=== PATIENT | male | born 1950 | race Caucasian/White ===

== ENCOUNTER → 2019-02-06 | Outpatient (CLI) | payer OTHER ==
[~2019-02-06] MED LIST: ALBU90OI61 INH; AMAN100 PO; DULERA 100 MCG/13 GM; FLUSAL5005 INH; ONDA8ODT MM; RASA1 PO; RXONDA4ODT MM; TIOT18
== END | disposition home or self-care (01) ==
LOC: LAB SHORT 08:06 → PLD 08:06
DX: L98.9 Disorder of the skin and subcutaneous tissue, unspecified (principal); L30.8 Other specified dermatitis
CPT/HCPCS: 88305; 88312

== ENCOUNTER 2022-11-09 08:04 | Inpatient (IN) | payer OTHER, MEDICARE ==
[~2022-11-09] VITALS: Ht 170.2 cm; Wt 59.0 kg
[2022-11-09] VITALS (18 sets, daily range): BP systolic 128–190; BP diastolic 80–110
[2022-11-09 08:37] LABS: Source, Urine Clean Catch
[2022-11-09 09:04] LABS: Appearance, Urine Clear (Clear); Bilirubin, Urine Neg (Neg); Blood, Urine Neg (Neg); Color, Urine Yellow (P-Yellow); Glucose Qualitative, Urine Neg (Neg); Ketones, Urine 3+ (Neg); Leukocyte Esterase, Urine Neg (Neg); Nitrite, Urine Neg (Neg); Protein, Urine 2+ (Neg); Urobilinogen, Urine NORM (Normal)
[2022-11-09 09:07] LABS: BASOPHILS ABSOLUTE AUTO 0.08 K/mm3 (0.00-0.23); BASOPHILS PERCENT AUTO 1 % (0-2); EOSINOPHILS ABSOLUTE AUTO 0.17 K/mm3 (0.00-0.68); EOSINOPHILS PERCENT AUTO 3 % (0-6); Hematocrit 41.7 % (37.0-53.0); Hemoglobin 14.3 g/dL (13.5-17.5); IMMATURE GRAN ABSOLUTE AUTO 0.02 K/mm3 (0.00-0.10); IMMATURE GRAN PERCENT AUTO 0 % (0-1); LYMPHOCYTES ABSOLUTE AUTO 1.11 K/mm3 (0.84-5.20); LYMPHOCYTES PERCENT AUTO 16 % (21-46); MONOCYTES ABSOLUTE AUTO 0.56 K/mm3 (0.16-1.47); MONOCYTES PERCENT AUTO 8 % (4-13); Mean Corpuscular HGB Conc 34.3 g/dL (31.5-36.5); Mean Corpuscular Volume 91 fL (80-100); Mean Platelet Volume 10.2 fL (9.1-12.4); NEUTROPHILS ABSOLUTE AUTO 4.87 K/mm3 (1.96-9.15); NEUTROPHILS PERCENT AUTO 72 % (41-73); Platelet Count 216 K/mm3 (150-400); RDW Coefficient Variation 13.6 % (11.7-14.2); RDW Standard Deviation 45.7 fL (35.1-46.3); Red Blood Cell Count 4.61 M/mm3 (4.30-5.90); White Blood Cell Count 6.81 K/mm3 (4.00-11.30)
[2022-11-09 09:15] LABS: Bacteria Not Seen /hpf; Mucus Light (0-Heavy); Red Blood Cells, Urine Not Seen /hpf (0-2); Squamous Epithelial Cells Rare /hpf (Few); White Blood Cells, Urine 0-2 /hpf (0-5)
[2022-11-09 09:24] LABS: Albumin, Blood 4.2 g/dL (3.4-5.0); Bilirubin, Direct 0.2 mg/dL (0.0-0.3); Bilirubin, Indirect 0.4 mg/dL (0.1-0.7); Bilirubin, Total 0.6 mg/dL (0.1-1.0); Calcium, Blood 9.8 mg/dL (8.5-10.1); Creatinine, Blood 1.04 mg/dL (0.60-1.20); Globulin, Blood 4.1 g/dL (2.2-4.0); Magnesium, Blood 2.4 mg/dL (1.6-2.4); Potassium, Blood 4.3 mmol/L (3.5-5.5); Total Protein, Blood 8.3 g/dL (6.4-8.2)
--- NOTE | 2022-11-09 14:30 | NUR ---
ARRIVAL ARRIVED TO UNIT, TRANSFERRED TO BED INDEPENDENTLY. PATEINT REPORTS MINIMAL PAIN AT THIS TIME, DENIES NAUSEA. ORIENTED TO ROOM & CALL LIGHT.
--- NOTE | 2022-11-09 15:13 | NUR ---
PATIENT TO DAY SURGERY WITH ÁNGEL PALM
--- NOTE | 2022-11-09 15:21 | NUR ---
THE PATIENT WAS BROUGHT TO DAY SURGERY FOR HIS PROCEDURE.
[2022-11-10 00:02] VITALS: BP 143/92
[2022-11-10 03:54] VITALS: BP 137/97
--- NOTE | 2022-11-10 03:59 | NUR ---
SUMMARY PATIENT IS AOX4, S/P EX LAP FOR INGUINAL HERNIA. GAUZE AND TEGADERM TO RLQ C/D/I. PATIENT HAS MILD DISTENTION AND TENDERNESS. REPORTS SMALL BOUTS OF NAUSEA NO VOMITTING. ABLE TO TOLERATE SMALL SIPS OF WATER T/O SHIFT. VOIDS IN URINAL WITH 1 ASSIST. IV FLUIDS INFUSING. MEDICATED FOR PAIN PER ORDERS. VSS, CALL LIGHT IN REACH. WILL REPORT TO DAY RN.
[2022-11-10 07:06] VITALS: BP 138/81
[2022-11-10 14:45] VITALS: BP 219/190
[2022-11-10 14:52] VITALS: BP 130/82
--- NOTE | 2022-11-10 18:39 | NUR ---
SUMMARY: PT IS POD1 HERNIA REPAIR. A/O, VSS. PT DOING WELL, FOZIA PO INTAKE, ADVANCING DIET TO FULL LIQ TONIGHT. PT HAS DENIED N/V, REPORTS PASSING FLATUS. PT INDEPENDENT TO BATHROOM. HAS REPORTED MINIMAL PAIN, MEDICATED PER EMAR. PT BP HAD VERY HYPERTENSIVE READING TONIGHT WITH THE VS MACHINE AND THIS RN MADE AWARE. BUT UPON ASSESSMENT PT ASYMPTOMATIC AND MANUAL BP TAKEN WNL. SEE CHARTING. PT HAS BASELINE TREMORS WITH PARKINSONS THAT MAKES IT DIFFICULT FOR THE VITAL SIGN MACHINE TO READ. NO ACUTE SAFETY CONCERNS, PT USING CALL LIGHT. SURGICAL SITE WNL. PLAN IS FOR DC TOMORROW.
[2022-11-10 19:23] VITALS: BP 158/66
[2022-11-11 03:57] VITALS: BP 147/70
[2022-11-11 07:17] VITALS: BP 131/80
--- NOTE | 2022-11-11 08:41 | NUR ---
SUMMARY TOLERATING PO.PAIN CONTROLLED. VOIDING WITHOUT DIFF. HOPING FOR DISCHARGE.
[2022-11-11 14:06] VITALS: BP 139/80
[2022-11-11 19:20] VITALS: BP 128/88
--- NOTE | 2022-11-11 19:24 | NUR ---
SHIFT SUMMARY PT A&OX4, VSS/RA, FOZIA PO, VOIDING WELL, BMsX2/PASSING FLATUS, AMB INDEPENDENTLY IN HALLWAY, SHOWERED TODAY, PAIN MANAGED. REPORT TO JAYJAY NEAL.
[2022-11-12 06:04] VITALS: BP 113/77
[2022-11-12 07:07] VITALS: BP 125/79
--- NOTE | 2022-11-12 07:59 | NUR ---
INDERJIT SALDANA PLANS FOR DISCHARGE TODAY.
--- NOTE | 2022-11-12 12:22 | NUR ---
DISCHARGE SUMMARY PT A&OX4, VSS/RA, FOZIA PO, VOIDING/BMS, AMB INDEPENDENTLY, PAIN MANAGED/DENIES NEED FOR PAIN MEDICATION, CHANGED GAUZE/TEGADERM DRESSING - STERI STRIP CDI UNDERNEATH, IV DC'D. DC INS PROVIDED. PT REP UNDERSTANDING THOSE INSTRUCTIONS INCLUDING FU WITH SURGEON 2 WKS, REMOVE TOP DRESSING 48 HOURS/LEAVE STERIS IN PLACE, OK TO SHOWER/NO TUBS. LEFT FLOOR WITH ALL PERSONAL POSSESSIONS INCLUDING DC PACKET, DECLINING WC.
== END 2022-11-12 11:54 | disposition home or self-care (01) | DRG 329 ==
LOC: ER 08:04 → SURS 11:47 → ER 11:47 → SURS 14:41
PROVIDERS: Student in an Organized Health Care Education/Training Program; ADMIT Surgery
PROC: 0DB80ZZ Excision of Small Intestine, Open Approach (ICD-10-PCS; principal; 2022-11-09 14:00)
PROC: 0YU70JZ Supplement Right Femoral Region with Synthetic Substitute, Open Approach (ICD-10-PCS; 2022-11-09 14:00)
DX: K40.30 Unilateral inguinal hernia, with obstruction, without gangrene, not specified as recurrent (principal); K55.019 Acute (reversible) ischemia of small intestine, extent unspecified; K41.30 Unilateral femoral hernia, with obstruction, without gangrene, not specified as recurrent; G20 Parkinson's disease; J45.909 Unspecified asthma, uncomplicated; Z87.891 Personal history of nicotine dependence; Z98.890 Other specified postprocedural states; Z79.899 Other long term (current) drug therapy
CPT/HCPCS: 36415; 74177; 80048; 80076; 81001; 83605; 83690; 83735; 85025; 88307; 96374-59; 96375; 96376; 99285-25; A9270; C9113; J0690; J1170; J1885; J2405; J2704; J3010; J7120; Q9967

== ENCOUNTER 2023-07-02 15:11 | Emergency (ER) | payer OTHER ==
[~2023-07-02] VITALS: Ht 170.2 cm; Wt 63.5 kg
[2023-07-02] MEDS ORDERED: Prednisone20 MG PO (17:04)
[2023-07-02] MEDS ORDERED: CYCL10 PO (17:04)
[2023-07-02 17:11] VITALS: BP 149/92
== END 2023-07-02 17:14 | disposition home or self-care (01) ==
LOC: ER 15:11
DX: M51.36 Other intervertebral disc degeneration, lumbar region (principal); G89.29 Other chronic pain; G20.A1 Parkinson's disease without dyskinesia, without mention of fluctuations; Z79.899 Other long term (current) drug therapy
CPT/HCPCS: 99282

== ENCOUNTER 2025-07-12 03:24 | Inpatient (IN) | payer OTHER ==
[~2025-07-12] VITALS: Ht 177.8 cm; Wt 58.2 kg
[~2025-07-12 03:24] MED LIST changes: +CYCL10 PO; +Prednisone20 MG PO
[2025-07-12] MEDS ORDERED: Lidocaine 2% Viscous Soln 15 ML UDC PO ONE (03:50)
[2025-07-12 04:02] LABS: BASOPHILS ABSOLUTE AUTO 0.06 K/mm3 (0.00-0.23); BASOPHILS PERCENT AUTO 1 % (0-2); EOSINOPHILS ABSOLUTE AUTO 0.44 K/mm3 (0.00-0.68); EOSINOPHILS PERCENT AUTO 7 % (0-6); Hematocrit 37.8 % (37.0-53.0); Hemoglobin 12.6 g/dL (13.5-17.5); IMMATURE GRAN ABSOLUTE AUTO 0.01 K/mm3 (0.00-0.10); IMMATURE GRAN PERCENT AUTO 0 % (0-1); LYMPHOCYTES ABSOLUTE AUTO 1.77 K/mm3 (0.84-5.20); LYMPHOCYTES PERCENT AUTO 29 % (21-46); MONOCYTES ABSOLUTE AUTO 0.46 K/mm3 (0.16-1.47); MONOCYTES PERCENT AUTO 8 % (4-13); Mean Corpuscular HGB Conc 33.3 g/dL (31.5-36.5); Mean Corpuscular Volume 94 fL (80-100); NEUTROPHILS ABSOLUTE AUTO 3.43 K/mm3 (1.96-9.15); NEUTROPHILS PERCENT AUTO 56 % (41-73); NRBC ABSOLUTE 0.00 K/mm3 (0.00-0.02); NRBC Auto 0.0 /100 WBC (0.0-0.2); Platelet Count 194 K/mm3 (150-400); RDW Coefficient Variation 13.2 % (11.7-14.2); RDW Standard Deviation 46.0 fL (35.1-46.3)
[2025-07-12] MEDS ORDERED: Morphine Sulfate 4 MG/1 ML Injection IV ONE ×2 (04:05→05:15)
[2025-07-12] MEDS ORDERED: Ondansetron HCl 2 MG / ML 2ML Vial IV ONE ×2 (04:05→16:00)
[2025-07-12 04:27] LABS: Alanine Aminotransfer (ALT/SGP 30.0 U/L (12-78); Albumin, Blood 3.7 g/dL (3.4-5.0); Albumin/Globulin Ratio 1.0 (0.8-1.8); Anion Gap 7.0 mmol/L (3-11); Aspartate Aminotrans (AST/SGOT 18.0 U/L (12-37); Bilirubin, Total 0.3 mg/dL (0.1-1.0); Blood Urea Nitrogen 22.0 mg/dL (8-24); CO2, Blood 27.0 mmol/L (21-32); Calcium, Blood 8.8 mg/dL (8.5-10.1); Chloride, Blood 107.0 mmol/L (98-108); Creatinine, Blood 0.93 mg/dL (0.60-1.20); Globulin, Blood 3.8 g/dL (2.2-4.0); Glucose, Blood 138.0 mg/dL (70-99); Magnesium, Blood 2.3 mg/dL (1.6-2.4); Potassium, Blood 3.8 mmol/L (3.5-5.5); Sodium, Blood 137.0 mmol/L (136-145); Total Protein, Blood 7.5 g/dL (6.4-8.2)
[2025-07-12] MEDS ORDERED: Ondansetron HCl 2 MG / ML 2ML Vial IV PRN ×2 (07:35→16:00)
[2025-07-12] MEDS ORDERED: KLONOPIN0.5 M9 PO (07:35)
[2025-07-12] MEDS ORDERED: NS 1,000 ML IV SCH (07:35)
[2025-07-12] MEDS ORDERED: FentaNYL Citrate 50 MCG/ML 2 ML Injection IV PRN (07:35)
[2025-07-12] MEDS ORDERED: FLU VACC TS2025(65UP)/MF59C/PF 45 MCG/0.5 ML SYRINGE IM SCH (07:40)
[2025-07-12 09:08] VITALS: BP 148/91
[2025-07-12] MEDS ORDERED: MIRT30ST PO (10:09)
[2025-07-12] MEDS ORDERED: GABA300 PO (10:10)
[2025-07-12] MEDS ORDERED: HYDROmorphone HCl/Pf 1MG SYR IV PRN (14:25)
[2025-07-12 14:57] VITALS: BP 150/89
--- NOTE | 2025-07-12 15:17 | NUR ---
ADMIT NOTE PT CAME TO FLOOR AT 0900. PT HAS HX OF PARKINSONS AND HAS TREMORS. PT TRANSFERED SELF TO BED WITH ONE PERSON ASSIST. PT ORIENTED TO CALL LIGHT/FALL PRECAUTIONS/UNIT. PT A&OX4. PT GOT REPORT FROM ER. PT ADMITTED DUE TO SBO. PT IS NPO, ON BOWEL REST. SCD'S ON. MED REC COMPLETED. ADMIT ASSESSMENT COMPLETE. PT PT IS A 1 ASSIST TO TOILET. PT REPORTS USING CANE/WALKER AT HOME. PT REPORTS HAVING GAS. NS RUNNING AT 100ML/HR. PT REPORTS ABD PAIN ON ADMIT. PT MEDICATED W FENT. AT 1057. PT REPORTED NAUSEA THIS AM, ZOFRAN IV ADMINISTERED. PT REPORTED FOFANA AND ABD PAIN THIS AFTERNOON, FENT. ORDERED Q4. FENT. WASN'T DUE QUITE YET. THIS RN NOTIFIED DR. DURBIN ABOUT 10/[address] DURBIN D/C FENT. AND ORDERED DILAUDID. THIS RN ADMINISTERED 0.5 MG OF DILAUDID, PT REPORTED 4/10 PAIN POST ADMINISTRATION. PT IN BED, BED IN LOWEST POSITION, BED LOCKED, CALL LIGHT IN REACH.
--- NOTE | 2025-07-12 16:45 | NUR ---
NOTE PT REPORTS NAUSEA, PT SPIT UP ON HIMSELF. EMESIS BAG AT BEDSIDE. DR. DURBIN ORDERED ONE TIME DOSE. THIS RN ADMINISTERED.
--- NOTE | 2025-07-12 18:30 | NUR ---
SHIFT SUMMARY (REFER BACK TO ADMIT NOTE ABOUT PAIN MANAGEMENT AND NAUSEA CONTROL.) PT A&OX4. PT ADMITED DUE TO SBO. PT REPORTS PAIN, PAIN MANAGED PER EMAR. PT REPORTS NAUSEA, NAUSEA MEDICATED PER EMAR. PT HAS COOL WASH CLOTH ON FOREHEAD FOR COMFORT AND FAN ON AT BEDSIDE. PT IS 1P ASSIST TO TOILET. THIS AFTERNOON DR. DEY NOTIFIED ABOUT INDICATION FOR NG TUBE. THIS RN EDUCATED PT ABOUT NG TUBE WHILE SON AT BEDSIDE. PT REPORTED "UNWILLINGNESS FOR TUBE." REPORTED "FEELING NERVOUS." PT REPORTED "NOT NAUSEA AND NO PAIN." THIS RN NOTICED TEARS IN PT EYES WHILE VERBALIZING IMPROVEMENT. THIS RN EDUCATED PT ON BENEFIT OF NG TUBE, PT DECLINED. THIS RN NOTIFIED DR. DEY BY CELL. PT REMAINS NPO. PT IN BED, BED IN LOWEST POSITION, LOCKED, EMESIS BAG NEAR BY, BED LOCKED, CALL LIGHT IN REACH.
[2025-07-12 20:14] VITALS: BP 147/91
[2025-07-13 04:26] VITALS: BP 132/79
--- NOTE | 2025-07-13 05:11 | NUR ---
SHIFT SUMMARY NOC PT A/O X 4. PLEASANT AND COOPERATIVE WITH CARE. BUT STILL REFUSING NGT PLACEMENT, HOSPITALIST NOTIFIED OF REFUSAL AND THAT DR DEY IS AWARE OF PREVIOUS REFUSAL. PT HAD MINIMAL NAUSA WITH LESS THAN 100ML EMESIS NOTED, AND ZOFRAN GIVEN X 2. PT HAD NO C/O OF ABD PAIN, BUT C/O OF FOFANA AND GIVEN TOTAL OF 1.5 MG IV DILAUDED WITH GOOD EFFECT. PT HAS IVF INFUSING PER EMAR. PT STATED THAT THEY HOPE TO ADVANCE TO CLEAR LIQUID DIET TODAY. PT ASLO ON PULSE OXIMETY FOR IV NARCOTICS AND FOR POSSIBLE ASPIRATION DUE TO NO NGT PLACMENT. Q6H BLOOD GLUCOSE CHECKS HAVE BEEN INITIATED. PT CURRENTLY RESTING WITH BED ALARM ON, BED IN LOWEST POSITION, AND CALL LIGHT WITHIN REACH.
[2025-07-13 05:34] LABS: BASOPHILS ABSOLUTE AUTO 0.05 K/mm3 (0.00-0.23); BASOPHILS PERCENT AUTO 1 % (0-2); EOSINOPHILS ABSOLUTE AUTO 0.04 K/mm3 (0.00-0.68); EOSINOPHILS PERCENT AUTO 1 % (0-6); Hematocrit 34.9 % (37.0-53.0); Hemoglobin 11.5 g/dL (13.5-17.5); IMMATURE GRAN ABSOLUTE AUTO 0.02 K/mm3 (0.00-0.10); IMMATURE GRAN PERCENT AUTO 0 % (0-1); LYMPHOCYTES ABSOLUTE AUTO 1.29 K/mm3 (0.84-5.20); LYMPHOCYTES PERCENT AUTO 18 % (21-46); MONOCYTES ABSOLUTE AUTO 0.49 K/mm3 (0.16-1.47); MONOCYTES PERCENT AUTO 7 % (4-13); Mean Corpuscular HGB Conc 33.0 g/dL (31.5-36.5); Mean Corpuscular Volume 94 fL (80-100); NEUTROPHILS ABSOLUTE AUTO 5.22 K/mm3 (1.96-9.15); NEUTROPHILS PERCENT AUTO 73 % (41-73); NRBC ABSOLUTE 0.00 K/mm3 (0.00-0.02); NRBC Auto 0.0 /100 WBC (0.0-0.2); Platelet Count 188 K/mm3 (150-400); RDW Coefficient Variation 13.2 % (11.7-14.2); RDW Standard Deviation 45.9 fL (35.1-46.3)
[2025-07-13 05:54] LABS: Anion Gap 9.0 mmol/L (3-11); Blood Urea Nitrogen 16.0 mg/dL (8-24); CO2, Blood 25.0 mmol/L (21-32); Calcium, Blood 8.4 mg/dL (8.5-10.1); Chloride, Blood 107.0 mmol/L (98-108); Creatinine, Blood 0.85 mg/dL (0.60-1.20); Glucose, Blood 106.0 mg/dL (70-99); Potassium, Blood 3.9 mmol/L (3.5-5.5); Sodium, Blood 137.0 mmol/L (136-145)
[2025-07-13] MEDS ORDERED: Pantoprazole Sodium 40 MG Injection IV SCH (06:00)
[2025-07-13 07:24] VITALS: BP 167/98
[2025-07-13] MEDS ORDERED: Ketorolac Tromethamine 15mg Vial IV PRN (07:45)
[2025-07-13 16:46] VITALS: BP 152/93
--- NOTE | 2025-07-13 17:51 | NUR ---
SUMMARY- AAOX3-4. ON RA. THIS RN PLACED NG TUBE AT 1000 THIS MORNING AND PT HAS HAD VERY MINIMAL OUTPUT (100ML OF PINK-CLEAR FLUID). PT'S PAIN IS IMPROVED SINCE PLACEMENT. PAIN WELL CONTROLLED WITH EMAR PAIN MEDS. X1 ASSIST. NO ACUTE EVENTS THIS SHIFT. FOFANA PAIN MUCH IMPROVED AFTER KETOROLAC ADMINISTRATION.
[2025-07-13 20:42] VITALS: BP 142/84
[2025-07-14 04:27] VITALS: BP 153/85
[2025-07-14 04:43] LABS: BASOPHILS ABSOLUTE AUTO 0.06 K/mm3 (0.00-0.23); BASOPHILS PERCENT AUTO 1 % (0-2); EOSINOPHILS ABSOLUTE AUTO 0.43 K/mm3 (0.00-0.68); EOSINOPHILS PERCENT AUTO 6 % (0-6); Hematocrit 35.1 % (37.0-53.0); Hemoglobin 11.5 g/dL (13.5-17.5); IMMATURE GRAN ABSOLUTE AUTO 0.02 K/mm3 (0.00-0.10); IMMATURE GRAN PERCENT AUTO 0 % (0-1); LYMPHOCYTES ABSOLUTE AUTO 1.83 K/mm3 (0.84-5.20); LYMPHOCYTES PERCENT AUTO 25 % (21-46); MONOCYTES ABSOLUTE AUTO 0.50 K/mm3 (0.16-1.47); MONOCYTES PERCENT AUTO 7 % (4-13); Mean Corpuscular HGB Conc 32.8 g/dL (31.5-36.5); Mean Corpuscular Volume 95 fL (80-100); NEUTROPHILS ABSOLUTE AUTO 4.52 K/mm3 (1.96-9.15); NEUTROPHILS PERCENT AUTO 61 % (41-73); NRBC ABSOLUTE 0.00 K/mm3 (0.00-0.02); NRBC Auto 0.0 /100 WBC (0.0-0.2); Platelet Count 174 K/mm3 (150-400); RDW Coefficient Variation 13.4 % (11.7-14.2); RDW Standard Deviation 46.2 fL (35.1-46.3)
--- NOTE | 2025-07-14 05:31 | NUR ---
PT SLEPT T/O THIS SHIFT. PT HAS BOUTS OF FORGETFULNESS. PT PULLED NG TUBE DURING USING URINAL IT WAS REPLACED AND IT ON LOW INTERMITTENT SUCTION.
[2025-07-14 06:37] LABS: Alanine Aminotransfer (ALT/SGP 22.0 U/L (12-78); Albumin, Blood 3.5 g/dL (3.4-5.0); Albumin/Globulin Ratio 1.1 (0.8-1.8); Anion Gap 8.0 mmol/L (3-11); Aspartate Aminotrans (AST/SGOT 13.0 U/L (12-37); Bilirubin, Total 0.6 mg/dL (0.1-1.0); Blood Urea Nitrogen 14.0 mg/dL (8-24); CO2, Blood 25.0 mmol/L (21-32); Calcium, Blood 8.4 mg/dL (8.5-10.1); Chloride, Blood 109.0 mmol/L (98-108); Creatinine, Blood 0.9 mg/dL (0.60-1.20); Globulin, Blood 3.2 g/dL (2.2-4.0); Glucose, Blood 78.0 mg/dL (70-99); Potassium, Blood 3.5 mmol/L (3.5-5.5); Sodium, Blood 138.0 mmol/L (136-145); Total Protein, Blood 6.7 g/dL (6.4-8.2)
[2025-07-14 07:29] VITALS: BP 168/92
--- NOTE | 2025-07-14 12:24 | NUR ---
NOTIFIED DR GARCIA OF BLOOD GLUCOSE 67. ORDER TO DC NS AT 100 AND CHANGE TO D5 1/2 NS AT 100.
[2025-07-14] MEDS ORDERED: D5W-1/2NS 1,000 ML IV SCH (12:40)
--- NOTE | 2025-07-14 15:01 | NUR ---
NG TUBE DC'D PER DR. DEY, IF THE PT DID NOT FEAL NAUSEATED OR BLOATED AND WAS PASSING STOOL.IT IS OK TO REMOVE THE NG TUBE. PT REPORTED NO NAUSEA OR BLOATING AND REPORTED PASSING STOOL. THEREFORE THE NG TUBE HAS BEEN REMOVED,PT TOLERATED WELL
[2025-07-14 15:50] VITALS: BP 136/86
--- NOTE | 2025-07-14 16:08 | NUR ---
PT ALERT AND ORIENTED X3, STANDBY ASSISTANCE TO BEDSIDE COMMODE DUE TO IV POLE AND NG TUBE. C/O HEADACHE ONCE THIS SHIFT PRN TORADOL GIVEN AND RELIEVED SYMPTOMS. SMALL BOWEL FOLLOW THROUGH COMPLETED THIS AM-PT HAVING BM'S LIQUID WITH SOME FORMED PIECES. NG TUBE DISCONTINUED PER MD ORDER-DIET ADVANCED TO CLEARS PT DENIES NAUSEA OR PAIN WITH INTAKE. IVF INFUSING. CALL LIGHT IN REACH, BRAKES ON BED AND IN LOWEST POSITION. BEDSIDE TABLE IN REACH WITH WATER AND GATORADE DRINK.
[2025-07-14 20:18] VITALS: BP 135/81
--- NOTE | 2025-07-15 03:21 | NUR ---
SHIFT SUMMARY MELVIN IS A PLEASANT GENTLEMAN HERE FOR SBO. A&OX3, FORGETFUL AT TIMES BUT ABLE TO MAKE NEEDS KNOWN. 1 PERSON ASSIST TO THE BATHROOM DUE TO HIS SIGNIFICANT TREMORS. RAC PIV/SALINE LOCKED. ROOM AIR. DENIES PAIN. PT IS CONTINENT. USES URINAL AND OCCASIONALLY AMBULATES TO BR. CLEAR LIQUID DIET. Q6 CBG CHECKS. PT ABLE TO SWALLOW WITHOUT DIFFICULTY SINCE NG REMOVED EARLIER IN THE DAY. HYPERACTIVE BOWEL SOUNDS WITH FLATULENCE. PT SLEPT MOST OF THE NIGHT. AT LEAST 4 TIMES PT PULLED OFF HIS PULSE OXIMETER FINGER SENSOR AND DID NOT UNDERSTAND WHY THE MACHINE KEPT BEEPING. EDUCATED THE PATIENT ON WHY THE PULSE OX NEEDED TO REMAIN ON, PT VERBALIZED UNDERSTANDING EACH TIME. VSS. BED ALARM IN LOWEST POSITION.
[2025-07-15 04:11] VITALS: BP 129/86
[2025-07-15 05:47] LABS: BASOPHILS ABSOLUTE AUTO 0.06 K/mm3 (0.00-0.23); BASOPHILS PERCENT AUTO 1 % (0-2); EOSINOPHILS ABSOLUTE AUTO 0.57 K/mm3 (0.00-0.68); EOSINOPHILS PERCENT AUTO 9 % (0-6); Hematocrit 33.7 % (37.0-53.0); Hemoglobin 11.0 g/dL (13.5-17.5); IMMATURE GRAN ABSOLUTE AUTO 0.01 K/mm3 (0.00-0.10); IMMATURE GRAN PERCENT AUTO 0 % (0-1); LYMPHOCYTES ABSOLUTE AUTO 1.80 K/mm3 (0.84-5.20); LYMPHOCYTES PERCENT AUTO 28 % (21-46); MONOCYTES ABSOLUTE AUTO 0.67 K/mm3 (0.16-1.47); MONOCYTES PERCENT AUTO 10 % (4-13); Mean Corpuscular HGB Conc 32.6 g/dL (31.5-36.5); Mean Corpuscular Volume 94 fL (80-100); NEUTROPHILS ABSOLUTE AUTO 3.32 K/mm3 (1.96-9.15); NEUTROPHILS PERCENT AUTO 52 % (41-73); NRBC ABSOLUTE 0.00 K/mm3 (0.00-0.02); NRBC Auto 0.0 /100 WBC (0.0-0.2); Platelet Count 169 K/mm3 (150-400); RDW Coefficient Variation 13.2 % (11.7-14.2); RDW Standard Deviation 45.5 fL (35.1-46.3)
[2025-07-15 06:05] LABS: Alanine Aminotransfer (ALT/SGP 26.0 U/L (12-78); Albumin, Blood 3.3 g/dL (3.4-5.0); Albumin/Globulin Ratio 1.1 (0.8-1.8); Anion Gap 7.0 mmol/L (3-11); Aspartate Aminotrans (AST/SGOT 18.0 U/L (12-37); Bilirubin, Total 0.6 mg/dL (0.1-1.0); Blood Urea Nitrogen 14.0 mg/dL (8-24); CO2, Blood 26.0 mmol/L (21-32); Calcium, Blood 8.3 mg/dL (8.5-10.1); Chloride, Blood 108.0 mmol/L (98-108); Creatinine, Blood 0.92 mg/dL (0.60-1.20); Globulin, Blood 3.1 g/dL (2.2-4.0); Glucose, Blood 87.0 mg/dL (70-99); Potassium, Blood 3.3 mmol/L (3.5-5.5); Sodium, Blood 138.0 mmol/L (136-145); Total Protein, Blood 6.4 g/dL (6.4-8.2)
[2025-07-15 08:01] VITALS: BP 153/86
--- NOTE | 2025-07-15 14:16 | NUR ---
SHIFT SUMMARY AND DISCHARGE PATIENT ALERT AND INTERACTIVE BUT SLEEPING WHEN UNDISTURBED. PATIENT HAS HX OF PARKINSONS AND NOTED TO HAVE TREMORS. PATIENT DENIES ANY PAIN AT THIS TIME. PATIENT EDUCATED ON THE IMPORTANCE OF HAVING REGULAR BOWEL MOVEMENTS AND BOWEL CARE. DISCHARGE INSTRUCTIONS REVIEWED WITH PATIENT. IV DC'D PRIOR TO DISCHARGE. ROOM CHECK DONE PRIOR TO DISCHARGE. RAVEN SENT HOME WITH PATIENT.
== END 2025-07-15 14:45 | disposition home health service (06) | DRG 390 ==
LOC: ER 03:24 → MEDS 07:31
PROVIDERS: Family Medicine; Student in an Organized Health Care Education/Training Program; ADMIT Family Medicine
DX: K56.609 Unspecified intestinal obstruction, unspecified as to partial versus complete obstruction (principal); G20.A1 Parkinson's disease without dyskinesia, without mention of fluctuations; J45.909 Unspecified asthma, uncomplicated; D64.9 Anemia, unspecified; Z90.49 Acquired absence of other specified parts of digestive tract; Z79.899 Other long term (current) drug therapy
CPT/HCPCS: 36415; 71045; 74177; 74250; 80048; 80053; 82947; 83605; 83690; 83735; 84484; 85025; 93005; 93010; 94762; 96374; 96375; 96376; 99285-25; A9270; J1171; J1885; J2270; J2405; J2470; J3010; J7030; J7042; J7120; Q9967